=== PATIENT | female | born 1945 | race Caucasian/White ===

== ENCOUNTER 2022-11-27 13:22 | Day surgery (SDC) | payer OTHER ==
[~2022-11-27] VITALS: Ht 162.6 cm; Wt 101.7 kg
[~2022-11-27 13:22] MED LIST: PANT40 PO; SPIHYD PO
[2022-11-27] MEDS ORDERED: Loratadine10 MG PO (13:48)
[2022-11-27 15:35] VITALS: BP 193/87
--- NOTE | 2022-11-27 15:37 | NUR ---
11/27/22 1537 [place] BP DECREASED TO BASELINE, NOTED AT 204/85 AND 193/87. PT STATED SHE DID NOT TAKE HER BP MEDICATION THIS AM, HOWEVER, PT STATED SHE WILL BE TAKING IT TONIGHT. NO MEDICATIONS WERE GIVEN. PT DENIED PAIN. PT ABLE TO TOLERATE EATING AND DRINKING WITH NO ISSUES. DISCHARGE INSTRUCTIONS GIVEN, ALL QUESTIONS ANSWERED. PT STATED READINESS TO GO HOME.
[2022-11-28] MEDS ORDERED: HYDCHL25 PO (13:51)
== END 2022-11-27 15:55 | disposition home or self-care (01) ==
LOC: ORSCSDS 13:22
PROVIDERS: Ophthalmology
PROC: 08RK3JZ Replacement of Left Lens with Synthetic Substitute, Percutaneous Approach (ICD-10-PCS; principal; 2022-11-27 16:00)
DX: H25.13 Age-related nuclear cataract, bilateral (principal); I10 Essential (primary) hypertension; J45.909 Unspecified asthma, uncomplicated; E66.9 Obesity, unspecified; Z68.38 Body mass index [BMI] 38.0-38.9, adult; Z79.899 Other long term (current) drug therapy
CPT/HCPCS: J2250; J3010; J3301; J7040; V2632

== ENCOUNTER 2022-12-04 14:24 | Day surgery (SDC) | payer OTHER ==
[~2022-12-04] VITALS: Ht 162.6 cm; Wt 101.6 kg
[~2022-12-04 14:24] MED LIST changes: +HYDCHL25 PO; +Loratadine10 MG PO
--- NOTE | 2022-12-04 15:28 | NUR ---
12/04/22 1528 Re [address] 1327 1 DROP OF TETRACAINE ADMINISTERED TO THE R EYE AT 1518, PLEDGET PLACED IN R EYE EYE AT 1522
[2022-12-04 16:16] VITALS: BP 172/76
--- NOTE | 2022-12-04 16:38 | NUR ---
12/04/22 1638 [place] MEDS/I&O/IP FLOW SHEET NOT POPULATING IN SDU TAB. [id number] REMAINING 300MLS IN BAG. INPUT 0MLS IN SDU. DISCHARGED WITH NO ISSUES.
== END 2022-12-04 16:34 | disposition home or self-care (01) ==
LOC: ORSCSDS 14:24
PROVIDERS: Ophthalmology
PROC: 08RJ3JZ Replacement of Right Lens with Synthetic Substitute, Percutaneous Approach (ICD-10-PCS; principal; 2022-12-04 16:00)
DX: H25.11 Age-related nuclear cataract, right eye (principal); I10 Essential (primary) hypertension; J45.909 Unspecified asthma, uncomplicated; Z79.899 Other long term (current) drug therapy; E66.01 Morbid (severe) obesity due to excess calories; Z68.37 Body mass index [BMI] 37.0-37.9, adult; Z96.1 Presence of intraocular lens
CPT/HCPCS: J2250; J2405; J3010; J3301; J7040; V2632